=== PATIENT | male | born 1995 | race African-American/Black ===

== ENCOUNTER 2024-05-23 04:30 | Emergency (ER) | payer MEDICAID ==
[~2024-05-23] VITALS: Ht 185.4 cm; Wt 129.5 kg
[2024-05-23 04:53] VITALS: O2SAT 97
[2024-05-23] MEDS ORDERED: AMOX1TAB16 MT (05:46)
[2024-05-23] MEDS ORDERED: P20 PO (05:46)
[2024-05-23] MEDS ORDERED: ALBU6.7H15 INH (05:55)
[2024-05-23 06:03] VITALS: BP 155/104; PULSE 94; RESP 16; TEMP 98.5
== END 2024-05-23 06:02 | disposition home or self-care (01) ==
LOC: ER 04:30
DX: M27.69 Other endosseous dental implant failure (principal); J06.9 Acute upper respiratory infection, unspecified; J45.909 Unspecified asthma, uncomplicated; Z98.890 Other specified postprocedural states
CPT/HCPCS: 99283